=== PATIENT | male | born 1945 | race Caucasian/White ===

== ENCOUNTER 2016-08-09 12:26 | Day surgery (SDC) | payer MEDICARE, OTHER | END 2016-08-09 12:49 | disposition home or self-care (01) | LOC: SDC 12:26 | PROVIDERS: ATTEND Surgery Vascular Surgery | DX: Z02.9 Encounter for administrative examinations, unspecified (principal) ==

== ENCOUNTER 2016-10-11 09:23 | Day surgery (SDC) | payer MEDICARE, OTHER ==
[~2016-10-11] VITALS: Ht 182.9 cm; Wt 116.0 kg
[2016-10-11 09:54] VITALS: BP 118/73
[2016-10-11] MEDS ORDERED: ASCO10004 PO (10:02)
[2016-10-11] MEDS ORDERED: METO5TAB57 PO (10:02)
[2016-10-11] MEDS ORDERED: FERR324T8 PO (10:02)
[2016-10-11] MEDS ORDERED: ATOR20TA9 PO (10:02)
[2016-10-11] MEDS ORDERED: FOLI0.8T22 PO (10:02)
[2016-10-11] MEDS ORDERED: VENL37.57 PO (10:02)
[2016-10-11] MEDS ORDERED: GABA300C10 PO (10:02)
[2016-10-11] MEDS ORDERED: PANT40TA5 PO (10:02)
[2016-10-11] MEDS ORDERED: ASPI81TA50 PO (10:02)
[2016-10-11] MEDS ORDERED: SEVE800T8 PO (10:02)
[2016-10-11] MEDS ORDERED: VIT1CAPS42 PO (10:02)
[2016-10-11] MEDS ORDERED: LIDOCAINE 2%, 20ML ONE (10:08)
[2016-10-11] MEDS ORDERED: CEFAZOLIN 1,000 MG ONE (10:20)
[2016-10-11] MEDS ORDERED: SODIUM CHLORIDE 0.9% 50 ML ONE (10:20)
[2016-10-11] MEDS ORDERED: PROTAMINE SULFATE 10 MG/ML, 25ML ONE (10:24)
[2016-10-11] MEDS ORDERED: MIDAZOLAM 1 MG/ML, 5ML ONE (10:24)
[2016-10-11] MEDS ORDERED: HEPARIN 1,000 UNITS/ML, 10ML ONE (10:25)
[2016-10-11] MEDS ORDERED: NALOXONE 1 MG/ML, 2ML ONE (10:25)
[2016-10-11] MEDS ORDERED: FENTANYL PF 100 MCG/2ML ONE (10:25)
[2016-10-11] MEDS ORDERED: FLUMAZENIL 0.1 MG/1 ML, 5ML ONE (10:25)
[2016-10-11] MEDS ORDERED: VISIPAQUE 270 MG/ML, 50ML BOTTLE ONE (11:00)
== END 2016-10-11 12:20 ==
LOC: OUT 09:23 → EDSTATUS 11:30 → OUT 12:20
PROVIDERS: ATTEND Surgery Vascular Surgery
DX: T82.590A Other mechanical complication of surgically created arteriovenous fistula, initial encounter (principal); Y83.8 Other surgical procedures as the cause of abnormal reaction of the patient, or of later complication, without mention of misadventure at the time of the procedure; Y92.89 Other specified places as the place of occurrence of the external cause; N18.6 End stage renal disease; Z86.14 Personal history of Methicillin resistant Staphylococcus aureus infection; Z88.8 Allergy status to other drugs, medicaments and biological substances; Z95.1 Presence of aortocoronary bypass graft
CPT/HCPCS: 36415; 36901; 75820; 80047; C1751; C1769; C1894; J0690; J2250; J3010; J3490; Q9966; J1644; J2720; J2310